=== PATIENT | male | born 1985 | race Asian ===

== ENCOUNTER 2017-03-19 14:16 | Emergency (ER) | payer OTHER ==
[~2017-03-19 14:16] MED LIST: NO HOME MEDICATION XX
== END 2017-03-19 16:21 ==
LOC: EDMED 14:16
PROC: 09Q0XZZ Repair Right External Ear, External Approach (ICD-10-PCS; principal; 2017-03-19)
DX: S01.311A Laceration without foreign body of right ear, initial encounter (principal); W01.0XXA Fall on same level from slipping, tripping and stumbling without subsequent striking against object, initial encounter; Y92.019 Unspecified place in single-family (private) house as the place of occurrence of the external cause